=== PATIENT | male | born 1975 | race Caucasian/White ===

== ENCOUNTER 2016-08-12 12:47 | Emergency (ER) | payer OTHER ==
[~2016-08-12] VITALS: Ht 182.9 cm; Wt 99.8 kg
[2016-08-12] MEDS ORDERED: TETANUS,DIPTH,PERTUSS P/F (BOOSTRIX) 0.5 ML VIAL IM STA (14:14)
--- NOTE | 2016-08-12 14:14 | ED General ---
General Chief Complaint: Exposure Stated Complaint: L HAND INDEX POKED WITH NEEDLE, POSITVE HEP C Nursing Triage Note: NEEDLE STICK TO LEFT INDEX FINGER WITH INSULIN SYRINGE Nursing Sepsis Screen: No Definite Risk Source of Information: Patient Exam Limitations: No Limitations History of Present Illness Time Seen by Provider: 14:13 Allergies and Home Medications Allergies Coded Allergies: No Known Drug Allergies (Unverified , 08/12/16) Home Medications No Active Prescriptions or Reported Meds Past Zfcjmkz-Ijcuiw-Stuoxw Hx Patient Social History Alcohol Use: Occasionally Uses Recreational Drug Use: No Smoking Status: Never a Smoker 2nd Hand Smoke Exposure: No Recent Foreign Travel: No Contact w/Someone Who Travel: No Recent Infectious Disease Expo: No Recent Hopitalizations: No Immunizations Up To Date Tetanus Booster (TDap): Unknown Seasonal Allergies Seasonal Allergies: No Physical Exam Vital Signs Vital Sign - Last 12Hours 08/12/16 13:47 Temp 98.4 Pulse 90 Resp 18 B/P (MAP) 139/90 Pulse Ox 93 O2 Delivery Room Air Capillary Refill : Less Than 3 Seconds Progress/Results/Core Measures Results/Orders My Orders Orders - GABRIELA LINARES Hiv 1&2 Antibody (08/12/16 14:14) Hepatitis Panel Acute (08/12/16 14:14) Dipht,Pertuss(Acell),Tet Adult (Boostrix (08/12/16 14:14) Emtricitabine/Tenofovir Tablet (Truvada (08/13/16 09:00) Raltegravir Tablet (Isentress (Hiv Tere (08/12/16 21:00) Vital Signs/I&O Vital Sign - Last 12Hours 08/12/16 13:47 Temp 98.4 Pulse 90 Resp 18 B/P (MAP) 139/90 Pulse Ox 93 O2 Delivery Room Air Blood Pressure Mean: 106 Departure Impression Impression: Primary Impression: Needle stick injury with contaminated needle Qualified Codes: W46.1XXA - Contact with contaminated hypodermic needle, initial encounter Additional Impression: Exposure to hepatitis C Disposition: 01 HOME, SELF-CARE Condition: Improved Departure-Patient Inst. Decision time for Depature: 14:53 Referrals: [facility] (PCP) Primary Care Physician Patient Instructions: NO INSTRUCTIONS GIVEN Add. Discharge Instructions: All discharge instructions reviewed with patient and/or family. Voiced understanding. Medications as directed. REPEAT HCV TESTING AT 4-6 WKS AND 6 MONTHS REPEAT HIV TESTING AT 6 WKS, 12 WKS, AND 6 MONTHS. Follow up with Occupational Health in the next 7 days. Call for appointment time. Return to the emergency department for redness, fever, drainage, or any other concerns. Scripts Ondansetron (Ondansetron Odt) 8 Mg Tab.rapdis 8 MG PO Q6H Y for NAUSEA/VOMITING-1ST LINE, #10 TAB 0 Refills Prov: GABRIELA LINARES 08/12/16 Raltegravir Potassium (Isentress) 400 Mg Tablet 400 MG PO BID, #5 TAB 0 Refills Prov: GABRIELA LINARES 08/12/16 Emtricitabine/Tenofovir (Truvada 200 mg-300 mg Tablet) 1 Each Tablet 1 EACH PO DAILY, #2 TAB 0 Refills Prov: GABRIELA LINARES 08/12/16 GABRIELA LINARES August 12, 2016 14:14
[2016-08-12] MEDS ORDERED: EMTR1TAB7 PO (14:56)
[2016-08-12] MEDS ORDERED: RALT400T PO (14:56)
[2016-08-12] MEDS ORDERED: ONDA8TAB13 PO (14:56)
[2016-08-12 15:09] VITALS: BP 125/93
[2016-08-12] MEDS ORDERED: RALTEGRAVIR 400 MG (ISENTRESS) TABLET PO SCH (21:00)
[2016-08-13] MEDS ORDERED: EMTRICITABINE/TENOFOVIR (TRUVADA) TAB PO SCH (09:00)
[2016-08-16 06:49] LABS: HIV AG AB SCREEN Non-Reactive (Non-Reactive)
== END 2016-08-12 15:01 | disposition home or self-care (01) ==
LOC: EDUNIT# 12:47 → ER 12:51
DX: Z20.89 Contact with and (suspected) exposure to other communicable diseases (principal); S61.231A Puncture wound without foreign body of left index finger without damage to nail, initial encounter; Z23 Encounter for immunization; W46.1XXA Contact with contaminated hypodermic needle, initial encounter; Y99.0 Civilian activity done for income or pay
CPT/HCPCS: 36415; 80074; 86703; 90471; 90715; 99281

== ENCOUNTER 2016-10-02 15:50 | Emergency (ER) | payer OTHER ==
[~2016-10-02] VITALS: Ht 182.9 cm; Wt 99.8 kg
[~2016-10-02 15:50] MED LIST: EMTR1TAB7 PO; ONDA8TAB13 PO; RALT400T PO
--- NOTE | 2016-10-02 16:08 | ED GU-Male ---
General Chief Complaint: -Male Stated Complaint: LUMP ON GROIN Source: patient Exam Limitations: no limitations History of Present Illness Time seen by provider: 16:07 Initial Comments To ER with a lump on the left testicle. He first noticed this yesterday. He states that his dog stepped on his groin about a week ago and believes this may be secondary to that however he is also concerned about testicular cancer. Timing/Duration: yesterday Severity/Quality: moderate Location: scrotal Radiation: none Activities at Onset: none Prior Genitourinary Problems: none Associated Symptoms: denies symptoms Allergies and Home Medications Allergies Coded Allergies: No Known Drug Allergies (Unverified , 08/12/16) Home Medications Emtricitabine/Tenofovir 1 Each Tablet, 1 EACH PO DAILY, #2 Ref 0 Prescribed by: GABRIELA LINARES on 08/12/16 1456 Ondansetron 8 Mg Tab.rapdis, 8 MG PO Q6H PRN for NAUSEA/VOMITING-1ST LINE, #10 Ref 0 Prescribed by: GABRIELA LINARES on 08/12/16 1456 Raltegravir Potassium 400 Mg Tablet, 400 MG PO BID, #5 Ref 0 Prescribed by: GABRIELA LINARES on 08/12/16 1456 Constitutional: see HPI EENTM: see HPI Respiratory: no symptoms reported Cardiovascular: no symptoms reported Genitourinary: see HPI Skin: no symptoms reported Psychiatric/Neurological: No Symptoms Reported Endocrine: No Symptoms Reported Past Jvagkuj-Oeecxx-Zzkiyl Hx Patient Social History 2nd Hand Smoke Exposure: No Recent Foreign Travel: No Contact w/Someone Who Travel: No Recent Hopitalizations: No Immunizations Up To Date Tetanus Booster (TDap): Unknown Seasonal Allergies Seasonal Allergies: No Surgeries HX Surgeries: No Respiratory Hx Respiratory Disorders: No Cardiovascular Hx Cardiac Disorders: No Neurological Hx Neurological Disorders: No Genitourinary Hx Genitourinary Disorders: No Gastrointestinal Hx Gastrointestinal Disorders: No Musculoskeletal Hx Musculoskeletal Disorders: No Endocrine Hx Endocrine Disorders: No Family Medical History Significant Family History: No Pertinent Family Hx Physical Exam Vital Signs Vital Sign - Last 12Hours 10/02/16 16:04 Temp 98.2 Pulse 77 Resp 20 B/P (MAP) 155/93 Pulse Ox 97 O2 Delivery Room Air Capillary Refill : General Appearance: WD/WN, no apparent distress HEENT: PERRL/EOMI, normal ENT inspection Neck: non-tender, full range of motion Respiratory: no respiratory distress, no accessory muscle use Gastrointestinal: normal bowel sounds, non tender, soft Genital/Rectal: other (is minimal testicular tenderness on the left. No erythema of the overlying scrotal skin. There is a palpable lump on the testicle.) Extremities: normal range of motion, non-tender Neurologic/Psychiatric: alert, normal mood/affect, oriented x 3 Skin: normal color, warm/dry Progress/Results/Core Measures Results/Orders My Orders Orders - AIMEE CASE APRN Scrotum (Testicle) [id number] (10/02/16 16:06) Vital Signs/I&O Vital Sign - Last 12Hours 10/02/16 16:04 Temp 98.2 Pulse 77 Resp 20 B/P (MAP) 155/93 Pulse Ox 97 O2 Delivery Room Air Departure Communication Progress Notes I did discuss the case with Dr. Marie. He recommends rest, ice, elevation and antibiotic prophylaxis. Impression Impression: Primary Impression: epididymal hematoma Disposition: 01 HOME, SELF-CARE Condition: Stable Departure-Patient Inst. Decision time for Depature: 16:57 Referrals: NO,LOCAL PHYSICIAN (PCP) Primary Care Physician MARY MERLOS MD Patient Instructions: Contusion (DC), HEMATOMA Add. Discharge Instructions: 1. Elevate the scrotum as much as possible. Wear supportive underwear 2. Use an ice pack to the scrotum when you are sitting around 3. No heavy lifting or straining for about a week 4. Take the antibiotics to keep this from developing an infection 5. Return to ER for any worsening or follow-up with Dr. Merlos. All discharge instructions reviewed with patient and/or family. Voiced understanding. Scripts Sulfamethoxazole/Trimethoprim (Bactrim Ds Tablet) 1 Each Tablet 1 EACH PO BID, #10 TAB Prov: AIMEE CASE APRN 10/02/16 AIMEE CASE APRN Oct 02, 2016 16:08
--- NOTE | 2016-10-02 16:54 | Diagnostic Imaging Report ---
EXAMINATION: Scrotal ultrasound. INDICATION: Injury with a dog stepping on the left testicle area with a lump developing afterwards. FINDINGS: The right testicle is 5 x 2.7 x 3.7 cm. The left testicle is 5.4 x 3 x 3.7 cm. There is a swelling and heterogeneity in the epididymis on the left side. Both testicles are normal in echotexture. There are arterial and venous waveforms seen on both testicles. No significant hydrocele. IMPRESSION: Slight heterogeneity in the left epididymis head with swelling is suggestive of soft tissue contusion and a small hematoma within the epididymis head. Dictated by: Dictated on workstation # [id number]
[2016-10-02 17:00] VITALS: BP 155/93
[2016-10-02] MEDS ORDERED: SULF1TAB35 PO (17:00)
== END 2016-10-02 17:00 | disposition home or self-care (01) ==
LOC: EDUNIT# 15:50 → ER 15:52
DX: N50.1 Vascular disorders of male genital organs (principal)
CPT/HCPCS: 76870; 99282